=== PATIENT | female | born 1980 | race Caucasian/White ===

== ENCOUNTER 2017-10-12 11:09 | Emergency (ER) | payer BC ==
[~2017-10-12] VITALS: Ht 160 cm; Wt 54.5 kg
[~2017-10-12 11:09] MED LIST: MOTRIN 600600 MG/TAB PO; PERCOCET 325 MG1 TA2 PO
[2017-10-12 11:12] VITALS: TEMP 98
[2017-10-12] MEDS ORDERED: ADDERALL10 MG PO (11:22)
[2017-10-12] MEDS ORDERED: MARLISSA 30 MCG1 TAB PO (11:22)
[2017-10-12 11:49] LABS: COLLECTION METHOD CLEAN CATCH
[2017-10-12 11:58] LABS: MUCOUS Present /lpf; PH 5 (5-8); URINE APPEARANCE Cloudy; URINE BACTERIA None Seen /hpf; URINE BILIRUBIN Negative (NEGATIVE); URINE BLOOD 3+ (NEGATIVE); URINE COLOR Yellow; URINE GLUCOSE Negative (NEGATIVE); URINE KETONE Negative (NEGATIVE); URINE LEUKOCYTE ESTERASE Negative (NEGATIVE); URINE NITRATE Negative (NEGATIVE); URINE PROTEIN(semi-quant) 1+ (NEGATIVE); URINE RBC >50 /hpf; URINE UROBILINOGEN Negative (NEGATIVE)
[2017-10-12 12:09] LABS: BASO % 0.6 % (0.0-2.0); EOS # 0.1 (0.0-0.7); EOS % 1.1 % (0-4.0); HEMOGLOBIN 13.6 g/dl (12.5-16.0); LYMPH # 1.7 (1.2-3.4); LYMPH % 26.7 % (20.0-51.0); MEAN CELL VOLUME 87 fl (80.0-100.0); MEAN CORPUSCULAR HEMOGLOBIN 29 pg (27.0-31.0); MEAN CORPUSCULAR HGB CONC 33 g/dl (33.0-37.0); MEAN PLATELET VOLUME 10.4 fl (7.4-10.4); MONO # 0.4 (0.1-0.6); MONO % 7.1 % (1.7-9.3); PLATELET COUNT 257 K/mm3 (130-400); RED BLOOD COUNT 4.71 M/mm3 (4.10-5.30); REDCELL DISTRIBUTION WIDTH-CV 13.4 % (11.5-14.5)
[2017-10-12 12:12] VITALS: BP 108/71
[2017-10-12 12:28] VITALS: PULSE 86
== END 2017-10-12 12:28 | disposition home or self-care (01) ==
LOC: COL.ER 11:09
PROVIDERS: Emergency Medicine; Physician Assistant
DX: N92.6 Irregular menstruation, unspecified (principal); F17.210 Nicotine dependence, cigarettes, uncomplicated; F90.9 Attention-deficit hyperactivity disorder, unspecified type; Z98.890 Other specified postprocedural states

== ENCOUNTER 2023-03-04 05:14 | Inpatient (IN) | payer BC ==
[2023-03-04] VITALS (20 sets, daily range): BP systolic 88–117; BP diastolic 52–92; PULSE 68–114; TEMP 98–98.9
[~2023-03-04] VITALS: Ht 160 cm; Wt 65.9 kg
[~2023-03-04 05:14] MED LIST changes: +ADDERALL10 MG PO; +MARLISSA 30 MCG1 TAB PO; +PRENATAL TABLET PO
[2023-03-04] MEDS ORDERED: MAGNESIUM200 MG PO (06:34)
[2023-03-04 06:40] LABS: BASO % 0.5 % (0.0-2.0); EOS % 0.7 % (0.0-4.0); GRAN # 3.9 K/mm3 (1.4-6.5); GRAN % 65.7 % (42.2-75.2); HEMOGLOBIN 10.9 g/dl (12.5-16.0); LYMPH # 1.4 K/mm3 (1.2-3.4); LYMPH % 23.6 % (20.0-51.0); MEAN CELL VOLUME 76 fl (80.0-100.0); MEAN CORPUSCULAR HEMOGLOBIN 24 pg (27-31); MEAN CORPUSCULAR HGB CONC 31 g/dl (33.0-37.0); MEAN PLATELET VOLUME 12.4 fl (7.4-10.4); MONO # 0.5 K/mm3 (0.1-0.6); PLATELET COUNT 191 K/mm3 (130-400); RED BLOOD COUNT 4.57 M/mm3 (4.10-5.30); REDCELL DISTRIBUTION WIDTH-CV 14.8 % (11.5-14.5)
[2023-03-04 06:41] LABS: HEMATOCRIT 34.9 % (37.0-47.0)
--- NOTE | 2023-03-04 07:45 | NUR ---
0742- AROM AT THIS TIME, CLEAR FLUID NOTED. 0743- VACUUM ASSISTED DELIVERY OF INFANT HEAD AT THIS TIME. NO POP OFFS, ONE PULL. DELIVERY OF SHOULDERS ALSO AT THIS TIME BY . 0745- MANUAL REMOVAL OF PLACENTA AT THIS TIME.
[2023-03-05] VITALS: BP 96/60; PULSE 68; TEMP 98.7
[2023-03-05 04:15] VITALS: BP 97/54; PULSE 74; TEMP 98.5
[2023-03-05 04:46] LABS: HEMATOCRIT 29.2 % (37.0-47.0)
[2023-03-05 08:16] VITALS: BP 91/59; PULSE 80; TEMP 98.5
--- NOTE | 2023-03-05 09:45 | NUR ---
Assume care of patient. Rests in bed, alert. Baby in crib.
--- NOTE | 2023-03-05 10:07 | NUR ---
Oxycodone 5 mg given per request and as ordered.
--- NOTE | 2023-03-05 15:22 | NUR ---
Ambulates in the hallway. Tolerates well.
[2023-03-05 17:00] VITALS: BP 101/61; PULSE 82; TEMP 98
[2023-03-05 19:16] VITALS: BP 100/67; PULSE 74; TEMP 98.5
[2023-03-06 08:15] VITALS: BP 95/54; PULSE 92; TEMP 97.8
[2023-03-06] MEDS ORDERED: IBU600 MG PO (09:06)
--- NOTE | 2023-03-06 09:15 | NUR ---
Discharge orders given, verbalizes understanding.
== END 2023-03-06 09:40 | disposition home or self-care (01) | DRG 788 ==
LOC: OB 05:14
PROVIDERS: ADMIT Obstetrics & Gynecology
PROC: 10D00Z1 Extraction of Products of Conception, Low, Open Approach (ICD-10-PCS; principal; 2023-03-04)
DX: O34.211 Maternal care for low transverse scar from previous cesarean delivery (principal); Z3A.39 39 weeks gestation of pregnancy; O34.13 Maternal care for benign tumor of corpus uteri, third trimester; D25.9 Leiomyoma of uterus, unspecified; O99.892 Other specified diseases and conditions complicating childbirth; O69.81X0 Labor and delivery complicated by cord around neck, without compression, not applicable or unspecified; O99.824 Streptococcus B carrier state complicating childbirth; Z37.0 Single live birth; Q85.00 Neurofibromatosis, unspecified; Z90.79 Acquired absence of other genital organ(s)
CPT/HCPCS: J0665; J0690; J1100; J1885; J2270; J2371; J2405; J2590; J7120